=== PATIENT | male | born 1965 | race Caucasian/White ===

== ENCOUNTER 2018-04-27 09:55 | Emergency (ER) | payer OTHER ==
[2018-04-27] MEDS: Morphine 10 MG/ML Syringe IVPUSH ONE ×2 (10:10→12:38)
[2018-04-27] MEDS: Ondansetron 4 MG/2 ML SDV IVPUSH ONE (10:13)
[2018-04-27 10:31] LABS: CHLORIDE,CL 103 mmol/L (98-107); SODIUM,NA 139 mmol/L (136-145)
--- NOTE | 2018-04-27 12:02 | EDM.PDOC ---
ED HPI GENERAL MEDICAL PROBLEM - General Chief Complaint: Trauma Stated Complaint: fall Time Seen by Provider: 04/27/18 10:50 Source of Information: Reports: Patient, Other (co-workers) History Limitations: Reports: No Limitations - History of Present Illness INITIAL COMMENTS - FREE TEXT/NARRATIVE: Patient fell off conveyor belt from approximately 6 feet (was a bit taller than him) and fell onto his right side. Had wind knocked out of him. Pain noted right ribs, heard "cracking" when he hit. Currently no SOB but chest wall hurts when he breathes on the right side. Did not hit head. No complaint of neck pain (approximately 30min later he said that he sometimes noted some pain in his neck and was then placed in C-spine immobilization) initially. Denied back/abdominal/pelvic/leg/arm pain. No LOC. No neuro changes/focal weakness/numbness or tingling. No other changes noted. No other complaints during ROS. Hx smoking 1PPD No siginificant ETOH use per patient. Was wearing a helmet. Patient denies any chronic medical problems/meds other than Meloxicam for DJD. Suspect COPD based on smoking history. Right Side Chest/Shoulder Pain Score (Numeric/FACES): 10 - Related Data Allergies Allergy/AdvReac Type Severity Reaction Status Date / Time No Known Allergies Allergy Verified 04/27/18 10:47 Home Meds: Home Meds Acetaminophen/oxyCODONE [Percocet 325-5 MG] 1 each PO ASDIRECTED PRN #20 tab [Rx] Albuterol [Ventolin HFA] 2 puff INH Q4H PRN #1 dispenser 04/27/18 [Rx] Meloxicam 15 mg PO DAILY 04/27/18 [History] Past Medical History Respiratory History: Reports: COPD Musculoskeletal History: Reports: Osteoarthritis Endocrine/Metabolic History: Reports: Obesity/BMI 30+ Social & Family History - Tobacco Use Smoking Status *Q: Current Every Day Smoker Packs/Tins Daily: 1 - Alcohol Use Alcohol Use History: Yes Alcohol Use Frequency: Socially - Recreational Drug Use Recreational Drug Use: No Drug Use in Last 12 Months: No Review of Systems - Review of Systems Review Of Systems: See Below Constitutional: Reports: No Symptoms Eyes: Reports: No Symptoms Ears: Reports: No Symptoms Nose: Reports: No Symptoms Mouth/Throat: Reports: No Symptoms Respiratory: Reports: Pleuritic Chest Pain. Denies: Shortness of Breath, Wheezing, Cough, Sputum, Hemoptysis Cardiovascular: Reports: Chest Pain. Denies: Edema, Irregular Heart Rate, Lightheadedness, Palpitations, Syncope GI/Abdominal: Reports: No Symptoms. Denies: Abdominal Pain, Nausea, Vomiting Genitourinary: Reports: No Symptoms. Denies: Hematuria Musculoskeletal: Reports: Neck Pain (initially no neck pain, approximately 30min later he started to notice some generalized neck discomfort at base). Denies: Shoulder Pain, Arm Pain, Back Pain, Hand Pain, Leg Pain, Foot Pain, Joint Pain, Joint Swelling Skin: Reports: Bruising (early bruising right shoulder) Neurological: Reports: No Symptoms. Denies: Confusion, Dizziness, Headache, Numbness, Paresthesia, Syncope, Tingling, Trouble Speaking, Difficulty Walking, Weakness, Change in Speech, Gait Disturbance Psychiatric: Reports: No Symptoms ED EXAM, GENERAL - Physical Exam Exam: See Below Exam Limited By: No Limitations General Appearance: Alert, WD/WN, No Apparent Distress Eye Exam: Bilateral Eye: EOMI, PERRL Ears: Normal External Exam, Normal Canal Nose: Normal Inspection, Normal Mucosa, No Blood Throat/Mouth: Normal Inspection, Normal Lips, Normal Oropharynx, Normal Voice, No Airway Compromise Head: Atraumatic, Normocephalic Neck: Normal Inspection, Supple, Non-Tender, Full Range of Motion. No: Limited Range of Motion, Lymphadenopathy (L), Lymphadenopathy (R), Tender Lateral, Tender Midline Respiratory/Chest: No Respiratory Distress, Lungs Clear, Normal Breath Sounds, No Accessory Muscle Use, Other (tender with palpation right lateral and anterior chest wall. Clavicle mildly tender. No bruising/crepitus/swelling/ deformity noted. ) Cardiovascular: Normal Peripheral Pulses, Regular Rate, Rhythm, No Edema, No Murmur Peripheral Pulses: 2+: Radial (L), Radial (R) GI/Abdominal: Normal Bowel Sounds, Soft, Non-Tender, No Distention, Other (obese ) (Male) Exam: Deferred Rectal (Males) Exam: Deferred Back Exam: Normal Inspection Extremities: Normal Inspection, Normal Range of Motion, Non-Tender, No Pedal Edema, Normal Capillary Refill Neurological: Alert, Oriented, CN II-XII Intact, Normal Cognition, Normal Gait, No Motor/Sensory Deficits Psychiatric: Anxious Skin Exam: Warm, Dry, Intact, Ecchymosis (early bruising noted lateral upper arm ) Course - Vital Signs Last Recorded V/S: Last Vital Signs Temp 36.5 C 04/27/18 10:46 Pulse 102 H 04/27/18 09:55 Resp 22 H 04/27/18 09:55 BP 179/162 H 04/27/18 09:55 Pulse Ox 96 04/27/18 09:55 - Orders/Labs/Meds Orders: Active Orders 24 hr Category Date Time Status Incentive Spirometry [RT Incentive Spirometry] [RC] Care 04/27/18 11:57 Active ASDIRECTED Chest w Cont [CT] Stat Exams 04/27/18 10:15 Taken Soft Tissue Neck w Cont [CT] Stat Exams 04/27/18 10:16 Taken Sodium Chloride 0.9% [Saline Flush] Med 04/27/18 12:39 Active 10 ml FLUSH ASDIRECTED PRN Medication Orders Sodium Chloride (Saline Flush) 10 ml FLUSH ASDIRECTED PRN PRN Reason: Keep Vein Open Last Admin: 04/27/18 12:39 Dose: 10 ml Labs: Laboratory Tests 04/27/18 04/27/18 Range/Units 10:00 10:00 WBC 10.4 H (4.0-10.2) K/uL RBC 5.15 (4.33-5.41) M/uL Hgb 16.3 (13.1-16.8) g/dL Hct 47.2 (39.0-49.0) % MCV 91.7 (84.0-98.0) fL MCH 31.7 (28.2-33.3) pg MCHC 34.5 (31.7-36.0) g/dL RDW 13.2 (11.2-14.1) % Plt Count 229 (150-350) K/uL Neut % (Auto) 71.4 (45.0-80.0) % Lymph % (Auto) 21.0 (10.0-50.0) % Price % (Auto) 6.0 (2.0-14.0) % Eos % (Auto) 1.1 (0.0-5.0) % Baso % (Auto) 0.5 (0.0-2.0) % Neut # (Auto) 7.43 H (1.40-7.00) K/uL Lymph # (Auto) 2.18 (0.50-3.50) K/uL Price # (Auto) 0.62 (0.00-1.00) K/uL Eos # (Auto) 0.11 (0.00-0.50) K/uL Baso # (Auto) 0.05 (0.00-0.20) K/uL Sodium 139 (136-145) mmol/L Potassium 4.4 (3.5-5.1) mmol/L Chloride 103 (98-107) mmol/L Carbon Dioxide 21.2 (21.0-32.0) mmol/L BUN 14 (7-18) mg/dL Creatinine 1.14 (0.51-1.17) mg/dL Est Cr Clr Drug Dosing TNP Estimated GFR (MDRD) > 60 mL/min Glucose 141 H (74-106) mg/dL Calcium 9.0 (8.5-10.1) mg/dL Total Bilirubin 0.6 (0.2-1.0) mg/dL AST 38 H (15-37) U/L ALT 69 (12-78) U/L Alkaline Phosphatase 58 (46-116) IU/L Total Protein 8.0 (6.4-8.2) g/dL Albumin 4.0 (3.4-5.0) g/dL Meds: Medications Generic Name Dose Route Start Last Admin Trade Name Freq PRN Reason Stop Dose Admin Sodium Chloride 10 ml 04/27/18 12:39 04/27/18 12:39 Saline Flush FLUSH 10 ml ASDIRECTED PRN Administration Keep Vein Open Discontinued Medications Generic Name Dose Route Start Last Admin Trade Name Freq PRN Reason Stop Dose Admin Acetaminophen 650 mg 04/27/18 12:31 04/27/18 12:38 Tylenol PO 04/27/18 12:32 650 mg NOW ONE Administration Iopamidol 100 ml 04/27/18 12:30 Isovue-300 (61%) IVPUSH 04/27/18 12:31 ONETIME ONE Morphine Sulfate 5 mg 04/27/18 12:31 04/27/18 12:38 Morphine IVPUSH 04/27/18 12:32 5 mg ONETIME ONE Administration - Radiology Interpretation Free Text/Narrative:: CT read by Radiology. No pneumothorax/fluid/abberations noted within chest. Did note fractures of right ribs #2,3,4,5 C-spine appeared normal. CT Results Date: 04/27/18 CT Results Time: 11:25 - Re-Assessments/Exams Free Text/Narrative Re-Assessment/Exam: 04/27/18 13:48 C-spine cleared. Ribs 2-5 showed fracture on right. No other significant changes noted on chest CT per Radiology. CBC/Chem performed. No significant abnormalities noted. Patient had MS for pain. Pain improved. Incentive spirometry lesson given by nursing. Patient was up and walking. No additional injuries identified. Will have patient follow up with his local clinic Monday (Monday at latest). Further work restrictions as needed by clinic that will be following him. Patient given ride back to his camper once discharged. Cautioned to avoid driving today due to MS received in ER. Rx for Vicodin for PRN use dispensed. To follow up as needed. Precautions reviewed at time of discharge. Patient had no further questions. BP improved significantly throughout stay. Inhaler RX given due to patient's smoking history (and suspected COPD) combined with pain from fractures interfering with deep breathing. Smoking cessation encouraged. Departure - Departure Time of Disposition: 12:30 Disposition: Home, Self-Care 01 Condition: Good Clinical Impression: Multiple rib fractures involving four or more ribs, Tobacco abuse counseling - Discharge Information Prescriptions: Acetaminophen/oxyCODONE [Percocet 325-5 MG] 1 each PO ASDIRECTED PRN #20 tab PRN Reason: Pain Albuterol [Ventolin HFA] 2 puff INH Q4H PRN #1 dispenser PRN Reason: Shortness Of Breath Instructions: Incentive Spirometer, Chronic Obstructive Pulmonary Disease, Easy -to-Read, How to Use a Metered Dose Inhaler, Rib Fracture, [id number] Referrals: PCP,Unknown [Primary Care Provider] - Forms: ED Department Discharge, ED Return to Work/School Form Additional Instructions: Call your primary doctor and make an appointment to follow up for recheck Monday if possible. If you require any additional pain medications you will need to get a refill from your own doctor. You are allowed to take one SINGLE Tylenol when you take your Percocet. Percocet already has Tylenol in it that is the equivalent of a single Tylenol pill. You do not want to take too much Tylenol as it is hard on the liver. Perform your incentive spirometry frequently throughout the day. You can apply ice to sore areas to help with discomfort. Follow up otherwise as needed if you have sudden worsening or new problems. Take you medication with food. - My Orders Last 24 Hours: My Active Orders 04/27/18 10:15 Chest w Cont [CT] Stat 04/27/18 10:16 Soft Tissue Neck w Cont [CT] Stat 04/27/18 11:57 Incentive Spirometry [RT Incentive Spirometry] [RC] ASDIRECTED 04/27/18 12:39 Sodium Chloride 0.9% [Saline Flush] 10 ml FLUSH ASDIRECTED PRN - Assessment/Plan Last 24 Hours: My Active Orders 04/27/18 10:15 Chest w Cont [CT] Stat 04/27/18 10:16 Soft Tissue Neck w Cont [CT] Stat 04/27/18 11:57 Incentive Spirometry [RT Incentive Spirometry] [RC] ASDIRECTED 04/27/18 12:39 Sodium Chloride 0.9% [Saline Flush] 10 ml FLUSH ASDIRECTED PRN
[2018-04-27] MEDS ORDERED: Morphine 10 MG/ML Syringe IM ONE (12:30)
[2018-04-27] MEDS ORDERED: Iopamidol 612 MG/ML 100 ML Bottle IVPUSH ONE (12:30)
[2018-04-27] MEDS: Acetaminophen 325 MG Tab PO ONE (12:38)
[2018-04-27] MEDS: Sodium Chloride 0.9% 10 ML Syringe FLUSH PRN (12:39)
== END 2018-04-27 13:05 | disposition home or self-care (01) ==
LOC: LL.ED 09:55
DX: S22.41XA Multiple fractures of ribs, right side, initial encounter for closed fracture (principal); F17.210 Nicotine dependence, cigarettes, uncomplicated; E66.9 Obesity, unspecified; J44.9 Chronic obstructive pulmonary disease, unspecified; Z71.6 Tobacco abuse counseling; Z79.899 Other long term (current) drug therapy; W17.89XA Other fall from one level to another, initial encounter; Y99.0 Civilian activity done for income or pay; Z68.41 Body mass index [BMI] 40.0-44.9, adult
CPT/HCPCS: 36415; 70491; 71260; 72125; 80053; 85025; 96374; 96375; 96376; 99285; A9270-GY; G0390; J2270; J2405; J7050; Q9967